=== PATIENT | female | born 1995 | race Asian ===

== ENCOUNTER 2016-07-27 03:59 | Emergency (ER) | payer SELFPAY ==
[2016-07-27 04:06] VITALS: RESP 16
[2016-07-27] MEDS ORDERED: LORazepam 2 MG/ML INJ ONE (04:08)
--- NOTE | 2016-07-27 04:19 | EDPHY ---
H & P Stated Complaint: panic attack Time Seen by Provider: 07/27/16 04:08 HPI/ROS: HPI The patient presents with concern for a panic attack, brought in by ambulance. She was out drinking vodka tonight at midnight she developed several episodes of vomiting. At about 330 in the morning she then developed chest pain which is throughout of chest, sharp in nature, does not radiate. She was hyperventilating. [place] was concerned about her, so called 911 she has a history of anxiety, and this feels similar. In the ambulance, EKG was obtained and was unremarkable except for tachycardia. REVIEW OF SYSTEMS Constitutional: No fever, no chills. Eyes: No discharge. ENT: No sore throat. Cardiovascular: + chest pain, no palpitations. Respiratory: No cough, no shortness of breath. Gastrointestinal: No abdominal pain, no vomiting. Genitourinary: No hematuria. Musculoskeletal: No back pain. Skin: No rashes. Neurological: No headache. PMHx: Anxiety Soc Hx: College student, alcohol use PHYSICAL General Appearance: Anxious appearing Eyes: Pupils equal and round no pallor or injection ENT, Mouth: Mucous membranes moist Respiratory: There are no retractions, lungs are clear to auscultation Cardiovascular: Regular rate and rhythm Gastrointestinal: Abdomen is soft and non-tender, no masses, bowel sounds normal Neurological: A&O, moves all extremities Skin: Warm and dry, no rashes Musculoskeletal: Neck is supple non tender Extremities: symmetrical, full range of motion Psychiatric: Patient is oriented X 3, there is no agitation Source: Patient, EMS Exam Limitations: No limitations - Personal History LMP (Females 10-55): Now Current Tetanus/Diphtheria Vaccine: Yes Current Tetanus Diphtheria and Acellular Pertussis (TDAP): Yes - Medical/Surgical History Hx Asthma: No Hx Chronic Respiratory Disease: No Hx Diabetes: No Hx Cardiac Disease: No Hx Renal Disease: No Hx Cirrhosis: No Hx Alcoholism: No Hx HIV/AIDS: No Hx Splenectomy or Spleen Trauma: No Other PMH: anxiety - Social History Smoking Status: Never smoked Constitutional: Initial Vital Signs Temperature (C) 36.5 C 07/27/16 04:04 Heart Rate 95 07/27/16 04:04 Respiratory Rate 16 07/27/16 04:04 Blood Pressure 113/88 H 07/27/16 04:04 O2 Sat (%) 99 07/27/16 04:04 O2 Delivery Mode Room Air Allergies/Adverse Reactions: No Known Allergies Allergy (Unverified 07/27/16 04:04) Home Medications: Medication Instructions Recorded NK [No Known Home Meds] 07/27/16 Medical Decision Making ED Course/Re-evaluation: 4:10 a.m.- I met the paramedics at the bedside to obtain report. The patient is currently tearful and appears quite anxious. 4:50 a.m.- I re-evaluated the patient and now she is quite sleepy and difficult to arouse. Vital signs are stable and she is breathing normally. 6:00 a.m.- The patient is now awake and alert. She is able to provide history. She was drinking heavily last night and then began vomiting. This caused pain in her chest. All her symptoms have now resolved and she feels well. She would like to go home. She will be discharged with her friend. 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 She is brought in by ambulance. It seems that she became quite anxious during the transport. Departure - Departure Disposition: Home, Routine, Self-Care Clinical Impression: Alcoholic intoxication, Chest pain, Vomiting Condition: Good Instructions: Alcohol Intoxication (ED) Additional Instructions: Please cut down on your drinking. It is likely the cause of your symptoms today. Referrals: Patient,NotPresent [Unknown] - As per Instructions
[2016-07-27 06:03] VITALS: BP 123/73; PULSE 88; TEMP 98.1; O2SAT 96
== END 2016-07-27 06:03 | disposition home or self-care (01) ==
DX: F10.129 Alcohol abuse with intoxication, unspecified (principal); R07.9 Chest pain, unspecified; R11.10 Vomiting, unspecified

== ENCOUNTER 2017-05-20 03:04 | Emergency (ER) | payer SELFPAY ==
[2017-05-20] MEDS ORDERED: ACETAMINOPHEN 500 MG TAB ONE (03:13)
--- NOTE | 2017-05-20 03:13 | EDPHY ---
H & P Stated Complaint: chills, leg pain, chest pain (not current), SARAH HPI/ROS: HPI CHIEF COMPLAINT: Chills, muscle aches, joint pain, headache, dry cough, musculoskeletal chest pain HISTORY OF PRESENT ILLNESS: This patient very pleasant 21-year-old female denies having any significant medical history does not take any daily medications she presents emergency room with muscle aches, joint pain, chills, mild headache, dry cough, musculoskeletal chest wall pain over the past 5-6 hours. She states around 9:00 p.m. tonight she was at work and all of sudden started having chills muscle aches and joint pain. No vomiting. Denies productive cough. Symptoms progressed. She did take Motrin prior to arrival. she arrives to the emergency room with a low-grade fever. She otherwise appears well nontoxic. She thinks she may have the flu. She denies vomiting, diarrhea, productive cough. Denies abdominal pain or urinary symptoms. No neck pain or neck stiffness. No severe headache. Main complaint muscle aches and joint pain. Past Medical History: No significant medical history Past Surgical History: No significant surgical history Social History: Denies daily use of drugs alcohol tobacco. [employer] student. Family History: Noncontributory ROS REVIEW OF SYSTEMS: A comprehensive 10 point review of systems is otherwise negative aside from elements mentioned in the history of present illness. Exam Constitutional appears well nontoxic, triage nursing summary reviewed, vital signs reviewed, awake/alert. Vital signs reviewed. Eyes normal conjunctivae and sclera, EOMI, PERRLA. HENT posterior pharynx normal. normal inspection, atraumatic, moist mucus membranes, no epistaxis, neck supple/ no meningismus, no raccoon eyes. Respiratory clear to auscultation bilaterally, normal breath sounds, no respiratory distress, no wheezing. Cardiovascular rate normal, regular rhythm, no murmur, no edema, distal pulses normal. Gastrointestinal soft, non-tender, no rebound, no guarding, normal bowel sounds, no distension, no pulsatile mass. Genitourinary no CVA tenderness. Musculoskeletal no midline vertebral tenderness, full range of motion, no calf swelling, no tenderness of extremities, no meningismus, good pulses, neurovascularly intact. Skin no rash. pink, warm, & dry, no rash, skin atraumatic. Neurologic awake, alert and oriented x 3, AAOx3, moves all 4 extremities equally, motor intact, sensory intact, CN II-XII intact, normal cerebellar, normal vision, normal speech. Psychiatric normal mood/affect. Heme/Lymph/Immune no lymphadenopathy. Differential Diagnosis: Includes but is not limited to in a particular order, viral syndrome, upper respiratory tract infection, influenza, pneumonia. Medical Decision Making: Plan for this patient Tylenol for symptomatic control , her vital signs are stable. She is not tachycardic. No hypoxia. Lung sounds clear on exam. She otherwise appears well. Will give Tylenol for symptomatic treatment. Also additionally check influenza. Re-evaluation: ED x-ray two view chest negative for acute cardiopulmonary disease interpreted by myself. No pneumonia. Urinalysis reviewed is unremarkable for UTI. Influenza is negative. [id number]:, I did re-evaluate this patient this time she is resting comfortably. Sleeping. No complaints. Feels better after Tylenol. Vital signs are stable. Afebrile. Urinalysis, chest x-ray, influenza negative. Most likely has a viral illness. She understands return emergency room if develops worsening symptoms questions concerns includes vomiting, feeling worse high fever. Source: Patient - Personal History LMP (Females 10-55): 8-14 Days Ago Current Tetanus/Diphtheria Vaccine: No - Medical/Surgical History Hx Asthma: No Hx Chronic Respiratory Disease: No Hx Diabetes: No Hx Cardiac Disease: No Hx Renal Disease: No Hx Cirrhosis: No Hx Alcoholism: No Hx HIV/AIDS: No Hx Splenectomy or Spleen Trauma: No Other PMH: PMHx: anxiety. PSHx: denies - Social History Smoking Status: Never smoked Constitutional: Initial Vital Signs Temperature (C) 37.8 C 05/20/17 03:06 Heart Rate 86 05/20/17 03:06 Respiratory Rate 15 05/20/17 03:06 Blood Pressure 121/67 H 05/20/17 03:06 O2 Sat (%) 99 05/20/17 03:06 O2 Delivery Mode Room Air Allergies/Adverse Reactions: No Known Allergies Allergy (Unverified 07/27/16 04:04) Home Medications: Medication Instructions Recorded NK [No Known Home Meds] 07/27/16 Medical Decision Making - Data Points Laboratory Results: 05/20/17 05/20/17 04:15 03:15 Urine Color PALE YELLOW Urine Appearance CLEAR Urine pH 6.0 (5.0-7.5) Ur Specific [place] 1.008 (1.002-1.030) Urine Protein NEGATIVE (NEGATIVE) Urine Ketones NEGATIVE (NEGATIVE) Urine Blood 1+ H (NEGATIVE) Urine Nitrate NEGATIVE (NEGATIVE) Urine Bilirubin NEGATIVE (NEGATIVE) Urine Urobilinogen NEGATIVE EU EU (0.2-1.0) Ur Leukocyte Esterase NEGATIVE (NEGATIVE) Urine RBC 3-5 /hpf H /hpf (0-3) Urine WBC 1-3 /hpf /hpf (0-3) Ur Epithelial Cells TRACE /lpf /lpf (NONE-1+) Urine Mucus TRACE /lpf /lpf (NONE-1+) Urine Glucose NEGATIVE (NEGATIVE) Nasal Influenza A PCR NEGATIVE FOR FLU A (NEGATIVE) Nasal Influenza B PCR NEGATIVE FOR FLU B (NEGATIVE) Medications Given: Discontinued Medications Acetaminophen (Tylenol) 1,000 mg PO EDNOW ONE Stop: 05/20/17 03:15 Last Admin: 05/20/17 03:15 Dose: 1,000 mg Departure - Departure Disposition: Home, Routine, Self-Care Clinical Impression: Viral syndrome Condition: Good Instructions: Viral Syndrome (ED) Additional Instructions: 1.Make sure to drink lots of fluids stay well-hydrated. 2. Return to the emergency room if you have worsening symptoms includes high fever, vomiting or not feeling well. Referrals: NONE *PRIMARY CARE P,. [Primary Care Provider] - As per Instructions
[2017-05-20] MEDS ORDERED: ACETAMINOPHEN 500 MG TAB PO ONE (03:14)
[2017-05-20 03:18] VITALS: RESP 16
[2017-05-20 04:34] LABS: COLOR PALE YELLOW; LEUKOCYTE ESTERASE,URINE NEGATIVE (NEGATIVE); NITRITE,URINE NEGATIVE (NEGATIVE)
[2017-05-20 04:43] LABS: MUCUS TRACE /lpf (NONE-1+)
[2017-05-20 05:03] VITALS: BP 111/65; PULSE 82; TEMP 100.4; O2SAT 94
== END 2017-05-20 05:04 | disposition home or self-care (01) ==
DX: B34.9 Viral infection, unspecified (principal)